=== PATIENT | male | born 2000 | race Caucasian/White ===

== ENCOUNTER 2022-12-12 22:02 | Emergency (ER) | payer MEDICAID ==
[~2022-12-12] VITALS: Ht 185.4 cm; Wt 159.1 kg
[2022-12-12 23:55] LABS: BASOPHILS % (AUTO) 0.2 % (0-1); EOSINOPHILS % (AUTO) 0 % (0-6); HEMATOCRIT 41.8 % (42.0-52.0); HEMOGLOBIN 14.4 g/dl (14.0-17.9); LYMPHOCYTES # (AUTO) 2.7 X10'3 (1.1-4.8); LYMPHOCYTES % (AUTO) 29.8 % (21-51); MEAN CORPUSCULAR HEMOGLOBIN 30.9 PG (27.0-31.0); MEAN CORPUSCULAR HGB CONC 34.5 g/dL (33.0-36.5); MEAN CORPUSCULAR VOLUME 89.7 FL (78-98); MEAN PLATELET VOLUME 9.2 FL (7.4-10.4); MONOCYTES # (AUTO) 0.6 X10'3 (0-0.9); MONOCYTES % (AUTO) 6.9 % (2-12); NEUTROPHILS # (AUTO) 5.7 X10'3 (1.8-7.7); NEUTROPHILS % (AUTO) 63.1 % (42-75); PLATELET COUNT 225 X10'3 (140-440); RED BLOOD COUNT 4.66 X10'6 (4.70-6.10)
[2022-12-13 00:03] LABS: ALANINE AMINOTRANSFERASE 69 U/L (12-78); ALBUMIN 3.9 G/DL (3.4-5.0); ALBUMIN/GLOBULIN RATIO 1.1 (1.1-1.5); ALKALINE PHOSPHATASE 93 IU/L (46-116); ANION GAP 13 (8-16); ASPARTATE AMINO TRANSFERASE 25 U/L (10-37); BILIRUBIN,TOTAL 0.3 MG/DL (0.1-1.0); BLOOD UREA NITROGEN 19 MG/DL (7-18); BUN/CREATININE RATIO 18.3 (10.0-20.0); CALCIUM 8.7 MG/DL (8.5-10.1); CHLORIDE 103 MMOL/L (99-107); CREATININE 1.04 MG/DL (0.60-1.10); ETHANOL < 0.010 GM/DL (0.0-0.010); GLUCOSE 99 MG/DL (70-104); SODIUM 141 MMOL/L (135-145); TOTAL PROTEIN 7.5 G/DL (6.4-8.2); eGFR 88 ML/MIN
[2022-12-13 01:18] LABS: URINE AMPHETAMINE SCREEN NEGATIVE (Neg); URINE BARBITUATE SCREEN NEGATIVE (Neg); URINE BENZODIAZEPINES SCREEN NEGATIVE (Neg); URINE CANNABINOID SCREEN NEGATIVE (Neg); URINE COCAINE SCREEN NEGATIVE (Neg); URINE METHADONE SCREEN NEGATIVE (Neg); URINE OPIATE SCREEN NEGATIVE (Neg); URINE PHENCYCLIDINE SCREEN NEGATIVE (Neg)
--- NOTE | 2022-12-13 04:00 | NUR ---
Patient brought from main ER room 13. Patient was under care of FRAUD ANALYST. Basic report from coating technician. This patient from triage notes took approximately 5 Klonopin 0.5 mg tablets as he was reported to be feeling anxiety and people were picking on him. See triage note. Interview 1:1 at bedside. Patilent is well oriented but hard of hearing. He tells this technical report writer that he has no S/I or H/I. He denies hallucinations. History of OCD, Autism?
[2022-12-13] MEDS ORDERED: CLON-528 PO (04:04)
[2022-12-13] MEDS ORDERED: CLOM75CA2 PO (04:11)
--- NOTE | 2022-12-13 05:00 | NUR ---
This patient is sleeping quietly in a supine position. He is in direct view from the nurses station.
--- NOTE | 2022-12-13 05:43 | NUR ---
PATIENT'S PACKET WAS SENT TO [facility].
--- NOTE | 2022-12-13 05:50 | NUR ---
Patient continues to sleep quietly in a supine position.
--- NOTE | 2022-12-13 06:30 | NUR ---
Assumed care of patient. Sleeping comfortably, rr even and unlabored.
--- NOTE | 2022-12-13 08:00 | NUR ---
Pt awake eating his breakfast. Pt A&Ox 4. Pt denies all psychotic symptoms.
--- NOTE | 2022-12-13 10:12 | NUR ---
Pt's mother at bedside, conversation appropriate. Pt will be sent home with her, no hold will be placed.
--- NOTE | 2022-12-13 11:34 | NUR ---
DISCHARGE NOTE: Patient was discharged from unit at 1125. Pt left with all personal belongings and home medication. Pt left with both parents. Pt is well established with the [facility] and [facility] [place]. Pt denies all psychotic symptoms states "I just want to see my brother."
[2022-12-13 11:38] VITALS: BP 126/83
[2022-12-13] MEDS ORDERED: CLOMIPRAMINE HCL 50 MG CAPSULE PO SCH (21:00)
== END 2022-12-13 11:25 | disposition home or self-care (01) ==
LOC: ER 22:03
DX: T42.4X1A Poisoning by benzodiazepines, accidental (unintentional), initial encounter (principal); Z20.822 Contact with and (suspected) exposure to COVID-19; F84.0 Autistic disorder; F91.9 Conduct disorder, unspecified; F42.9 Obsessive-compulsive disorder, unspecified; Z79.899 Other long term (current) drug therapy
CPT/HCPCS: 36415; 80053; 80305; 80320; 85025; 87811; 99283

== ENCOUNTER 2025-05-15 14:15 | Emergency (ER) | payer MEDICARE, MEDICAID ==
[~2025-05-15] VITALS: Ht 193 cm; Wt 380.0 kg
[~2025-05-15 14:15] MED LIST: CLON-850 PO; [UNRECOGNIZED DRUG - CODE] PO
--- NOTE | 2025-05-15 14:38 | Physician Documentation ---
History of Present Illness ~ Chief Complaint: Overdose Stated Complaint: OVERDOSE Time Seen by MD: 14:38 Mode of Arrival: EMS HPI 25-year-old male, presenting with an intentional overdose and suicidal ideation History is somewhat limited due to the patient's clinical condition and distress. He tells me that sometime around noon, or at least couple of hours ago, he took extra medication because he was feeling suicidal. He says that he took at least 4 or more extra of his clomipramine. He also says he took an unknown amount of hydroxyzine, says maybe he took the whole bottle. He denies any other ingestion. No physical self-harm. Currently he states that he feels anxious and his arms feel heavy. Medication Reconciliation Allergies: Coded Allergies: No Known Allergies (Unverified , 05/15/25) Scheduled Clomipramine HCl (Clomipramine HCl), 3 CAP PO HS, (Reported) Scheduled PRN Clonazepam (Klonopin), 0.5 MG PO DAILY PRN for for anxiety/agitation, (Reported) Past Medical History Past Medical History: *PSYCH* Past Surgical History: no surgical history Alcohol Use: None Drug Use: none Review of Systems Gastrointestinal: Denies: abdominal pain Psychiatric: Reports: suicidal Physical Exam Vital Signs: Temperature: 97.9, Source: Oral, Heart Rate: 99, Respiratory Rate: 20, BP: 151/99, Pulse Oximetry: 100, Weight: 380.000 Oxygen Flow Rate: 0 Physical Exam General: This is an anxious appearing young man, parents at bedside HEENT: Pupils are 3 mm, conjunctival injection, he is tearful Heart: Mild tachycardic, appears regular Lungs: normal work of breathing, normal oxygen saturation on room air Extremities: No traumatic findings or lacerations Neuro: Alert and oriented, does not appear confused Psychiatric: Is extremely anxious, tearful, in mild distress. He does endorse thoughts of self-harm Progress Results/Orders Results/Orders Vital Signs 05/15/25 05/15/25 05/15/25 05/15/25 14:19 14:31 15:13 16:15 Temp 97.9 Pulse 99 94 92 Resp 20 16 22 B/P (MAP) 151/99 140/89 (106) 117/74 (88) Pulse Ox 100 100 99 O2 Flow Rate 0 0 0 05/15/25 05/15/25 05/15/25 17:15 18:15 18:59 Pulse 96 96 Resp 20 20 B/P (MAP) 127/72 (90) 123/71 (88) Pulse Ox 98 100 O2 Flow Rate 0 0 Laboratory Tests Test 05/15/25 14:51 05/15/25 18:40 White Blood Count 6.1 Red Blood Count 5.17 Hemoglobin 15.4 Hematocrit 45.1 Mean Corpuscular Volume 87.4 Mean Corpuscular Hemoglobin 29.7 Mean Corpuscular Hemoglobin Concent 34.0 Red Cell Distribution Width 13.1 Platelet Count 219 Mean Platelet Volume 9.6 Neutrophils (%) (Auto) 65.9 Lymphocytes (%) (Auto) 27.9 Monocytes (%) (Auto) 5.8 Eosinophils (%) (Auto) 0.1 Basophils (%) (Auto) 0.3 Neutrophils # (Auto) 4.1 Lymphocytes # (Auto) 1.7 Monocytes # (Auto) 0.4 Eosinophils # (Auto) 0.0 Basophils # (Auto) 0.0 CBC Comment Sodium Level 142 Potassium Level 4.1 Chloride Level 106 Carbon Dioxide Level 26.2 Anion Gap 10 Blood Urea Nitrogen 18 Creatinine 1.12 H Estimated GFR/1.73 m2 79 BUN/Creatinine Ratio 16.1 Glucose Level 92 Calcium Level 8.8 Troponin I High Sensitivity 4 Pro-B-Type Natriuretic Peptide < 30 Albumin 4.0 Chemistry Comments Acetaminophen Level < 2.0 L Urine Specimen Description Voided Urine Color Yellow Urine Clarity Clear Urine pH 5.5 Urine Specific [place] 1.025 Urine Protein Negative Urine Glucose (UA) Negative Urine Ketones Negative Urine Occult Blood Negative Urine Nitrite Negative Urine Bilirubin Negative Urine Urobilinogen 0.2 Urine Leukocyte Esterase Negative Volume Urine Centrifuged 10 ml Urine Comment Drug Screen Comment EKG/XRAY/CT/US/VASC/MRI EKG : Additional Comment I personally interpreted the EKG and this shows: Sinus rhythm, rate 94, QTC 483, QRS 105 Repeat ECG shows sinus rhythm, QRS 92, QTC 456 Consults/PCP Consults/PCP : Additional Comment Poison center contacted for recommendations- They recommend a 6 hour observation period and repeat EKG Medical Decision Making Findings Dr. Bae receiving care of patient: Patient is sitting up in bed eating. Repeat EKG is reassuring. He is medically cleared for mental health evaluation Differential Dx:Considerations: Include: Alcohol abuse, Anxiety, Depression, Drug Overdose-Accidental, Drug Overdose-Intentional, Suicidal attempt Additional Comment The patient presents with an intentional overdose in the setting of suicidal ideation anxiety. Poison center consulted and recommendations followed. Laboratory testing unremarkable. EKG without prolonging QRS or other acute abnormality. He did not develop seizures or any other dangerous symptoms. The patient was signed out at shift change to the oncoming ER provider, pending poison center recommendations and medical clearance. He is on a 1799 hold, and will require mental health evaluation. Departure Disposition: 30 STILL A PATIENT Impression: Primary Impression: Intentional overdose Additional Impression: Suicidal ideation Condition: Guarded Referrals: NO PRIMARY CARE PROVIDER (PCP) Signature Scribe Signature: na Attestation: The note accurately reflects work and decisions made by me.Oliverio Bae MD 05/15/25 19:08 na GLORY ELENA MD May 15, 2025 14:38 OLIVERIO BAE MD May 15, 2025 19:08
--- NOTE | 2025-05-15 14:54 | ELECTROCARDIOGRAPH REPORT ---
[facility] Test Date: 2025-05-15 Test Time: 14:50:18 Pat Name: MARCIANO FOY Department: [facility]- Patient ID: [facility]-[id number] Room: Gender: M Tooling Mechanic: : 2000 Requested By: GLORY ELENA Order Number: [id number] Reading MD: Dr. Michael Farrell Measurements Intervals [place] Rate: 94 P: 70 [place]: 155 QRS: 61 QRSD: 105 T: 0 QT: 386 QTc: 483 Interpretive Statements Sinus rhythm Minimal ST depression, inferior leads Borderline prolonged QT interval Electronically Signed On 05-17-2025 19:18:[address] Michael Farrell Please click the below link to view image of tracing.
--- NOTE | 2025-05-15 15:02 | RADIOLOGY REPORT ---
EXAM: DI CHEST,SINGLE VIEW HISTORY: CP COMPARISON: None TECHNIQUE: Portable semi-erect AP view of the chest was performed. FINDINGS: No pneumothorax, consolidative infiltrates, or pulmonary edema. The heart is borderline enlarged. There is abundant overlying adipose tissue. IMPRESSION: Obesity without evidence of acute intrathoracic process.
[2025-05-15 15:03] LABS: MEAN PLATELET VOLUME 9.6 FL (7.4-10.4); RED CELL DISTRIBUTION WIDTH 13.1 % (11.5-14.5)
[2025-05-15 15:23] LABS: CREATININE 1.12 MG/DL (0.60-1.10); TOTAL CARBON DIOXIDE 26.2 MMOL/L (24-32); eCRCL 122 ML/MIN; eGFR 79 ML/MIN
[2025-05-15 15:44] LABS: PRO BRAIN NATRIURETIC PEPTIDE < 30 PG/ML (0-125)
--- NOTE | 2025-05-15 18:01 | ELECTROCARDIOGRAPH REPORT ---
[facility] Test Date: 2025-05-15 Test Time: 17:58:29 Pat Name: MARCIANO FOY Department: [facility]- Patient ID: [facility]-[id number] Room: Gender: M Client Care Coordinator: : 2000 Requested By: GLORY ELENA Order Number: [id number] Reading MD: Dr. Michael Farrell Measurements Intervals [place] Rate: 86 P: 93 ID: [id number] QRS: 57 QRSD: 92 T: 10 QT: 381 QTc: 456 Interpretive Statements Sinus rhythm Low voltage, precordial leads Borderline ST elevation, lateral leads Electronically Signed On 05-17-2025 19:18:[address] Michael Farrell Please click the below link to view image of tracing.
[2025-05-15 19:03] LABS: LEUKOCYTE ESTERASE ,URINE NEGATIVE (Neg); NITRITES, URINE NEGATIVE (Neg); OCCULT BLOOD,URINE NEGATIVE (Neg)
[2025-05-15 19:06] LABS: UA COLLECTION TYPE VOIDED
[2025-05-15 19:26] LABS: URINE AMPHETAMINE SCREEN NEGATIVE (Neg); URINE BARBITUATE SCREEN NEGATIVE (Neg); URINE BENZODIAZEPINES SCREEN NEGATIVE (Neg); URINE CANNABINOID SCREEN NEGATIVE (Neg); URINE COCAINE SCREEN NEGATIVE (Neg); URINE METHADONE SCREEN NEGATIVE (Neg); URINE OPIATE SCREEN NEGATIVE (Neg); URINE PHENCYCLIDINE SCREEN NEGATIVE (Neg)
[2025-05-15] MEDS ORDERED: HYDR-3686 PO (19:44)
[2025-05-15] MEDS ORDERED: HYDR12.55 PO (19:44)
[2025-05-15] MEDS ORDERED: FLUV50TA10 PO (19:44)
[2025-05-15] MEDS ORDERED: CLOM50CA PO (19:44)
[2025-05-15] MEDS ORDERED: ARIP15TA68 PO (19:44)
[2025-05-15] MEDS: fluvoxamine 25 MG tablet PO SCH (21:12)
[2025-05-16 14:16] VITALS: BP 133/82; PULSE 80; RESP 12; TEMP 97.4; O2SAT 97
[2025-05-16] MEDS ORDERED: CLOMIPRAMINE HCL 50 MG CAPSULE PO SCH (21:00)
== END 2025-05-16 14:19 | disposition home or self-care (01) ==
LOC: ER 14:16
DX: T50.902A Poisoning by unspecified drugs, medicaments and biological substances, intentional self-harm, initial encounter (principal); R45.851 Suicidal ideations; Y92.89 Other specified places as the place of occurrence of the external cause
CPT/HCPCS: 36415; 71045; 80048; 80305; 80329; 81003; 83880; 84484; 85025; 93005; 99285; Q0177